=== PATIENT | female | born 1950 | race Caucasian/White ===

== ENCOUNTER 2024-03-13 05:50 | Day surgery (SDC) | payer OTHER, MEDICAID ==
[~2024-03-13] VITALS: Ht 154.9 cm; Wt 90.9 kg
[~2024-03-13 05:50] MED LIST: KETOROLAC TROMETHAMINE 0.5% 5 ML OPHTHALMIC SOLUTION ONE; MOXIFLOXACIN HCL 0.5% 3 ML OPHTHALMIC SOLUTION ONE; PHENYLEPHRINE HCL 2.5% 2 ML OPHTHALMIC SOLUTION ONE; RINGERS SOLUTION,LACTATED 500 ML IV ONE; TROPICAMIDE 1% 2 ML OPHTHALMIC SOLUTION ONE
[2024-03-13] MEDS ORDERED: CHONDR SULF A SOD/HYALURONATE 1.05 ML KIT IO ONE (06:20)
[2024-03-13] MEDS ORDERED: ASPI-1444 PO (06:27)
[2024-03-13] MEDS ORDERED: QUET50TA24 PO (06:27)
[2024-03-13] MEDS ORDERED: DIVA-153 PO (06:27)
[2024-03-13] MEDS ORDERED: SEMA14TA2 PO (06:27)
[2024-03-13] MEDS ORDERED: INSU100I94 SQ (06:27)
[2024-03-13] MEDS ORDERED: ACET-2895 PO (06:27)
[2024-03-13] MEDS ORDERED: TIOT4MIS5 IH (06:27)
[2024-03-13] MEDS ORDERED: QUET25TA PO (06:27)
[2024-03-13] MEDS ORDERED: CALC-1124 PO (06:27)
[2024-03-13] MEDS ORDERED: METF-446 PO (06:27)
[2024-03-13] MEDS ORDERED: CARV25TA32 PO (06:27)
[2024-03-13] MEDS ORDERED: ROSU40TA70 PO (06:27)
[2024-03-13] MEDS ORDERED: GABA-1181 PO (06:27)
[2024-03-13] MEDS ORDERED: CHOL500045 PO (06:27)
[2024-03-13] MEDS ORDERED: DONE-52 PO (06:27)
[2024-03-13] MEDS ORDERED: ACETYLCHOLINE CHLORIDE 1 EA INTRAOCULAR SOLUTION KIT IO ONE (06:29)
[2024-03-13] MEDS ORDERED: MIDAZOLAM HCL 2 MG/2 ML VIAL ONE (06:41)
[2024-03-13] MEDS ORDERED: FentaNYL CITRATE PF 100 MCG/2 ML VIAL ONE (06:41)
[2024-03-13] MEDS: RINGERS SOLUTION,LACTATED 500 ML IV ONE (06:53)
[2024-03-13 06:55] LABS: GLUCOMETER DEV NAME(LOC) SDS.; GLUCOSE,POINT OF CARE 213 MG/DL (70-110)
[2024-03-13] MEDS: KETOROLAC TROMETHAMINE 0.5% 5 ML OPHTHALMIC SOLUTION OD SCH (07:14)
[2024-03-13] MEDS: PHENYLEPHRINE HCL 2.5% 2 ML OPHTHALMIC SOLUTION OD SCH (07:15)
[2024-03-13] MEDS: TROPICAMIDE 1% 2 ML OPHTHALMIC SOLUTION OD SCH (07:15)
[2024-03-13] MEDS: MOXIFLOXACIN HCL 0.5% 3 ML OPHTHALMIC SOLUTION OD SCH (07:16)
[2024-03-13] MEDS ORDERED: POVIDONE-IODINE 5% 30 ML OPHTHALMIC SOLUTION ONE (07:58)
[2024-03-13] MEDS: BALANCED SALT 15 ML OPHTHALMIC IRRIG.SOLN ONE (15:21)
[2024-03-13] MEDS: EPINEPHrine 1:1,000 [1 MG/ML] VIAL ONE (15:25)
[2024-03-13] MEDS: LIDOCAINE/PF 1% 2 ML VIAL ONE (15:27)
[2024-03-13] MEDS: TETRACAINE HCL/PF 0.5% 4 ML OPHTHALMIC SOLUTION ONE (15:27)
[2024-03-13] MEDS: POVIDONE-IODINE 5% 30 ML OPHTHALMIC SOLUTION ONE (15:29)
== END 2024-03-13 12:45 | disposition home or self-care (01) ==
LOC: SURGERY 05:50
PROVIDERS: ATTEND Ophthalmology
DX: E11.36 Type 2 diabetes mellitus with diabetic cataract (principal); H25.11 Age-related nuclear cataract, right eye; I10 Essential (primary) hypertension; E66.9 Obesity, unspecified; Z68.37 Body mass index [BMI] 37.0-37.9, adult; Z98.818 Other dental procedure status; Z98.891 History of uterine scar from previous surgery; Z79.82 Long term (current) use of aspirin; Z79.84 Long term (current) use of oral hypoglycemic drugs; Z79.4 Long term (current) use of insulin; Z79.899 Other long term (current) drug therapy
CPT/HCPCS: 66984; 93005; 82962; J7321; J0171; J3010; J3490; J2250; J7120; V2632

== ENCOUNTER 2024-04-10 10:48 | Day surgery (SDC) | payer OTHER, MEDICAID ==
[~2024-04-10] VITALS: Ht 156.2 cm; Wt 81.8 kg
[~2024-04-10 10:48] MED LIST changes: +ACET-2895 PO; +ASPI-1444 PO; +BALANCED SALT 15 ML OPHTHALMIC IRRIG.SOLN ONE; +CALC-1124 PO; +CARV25TA32 PO; +CHOL500045 PO; +CHONDR SULF A SOD/HYALURONATE 1.05 ML KIT IO ONE; +DIVA-153 PO; +DONE-52 PO; +FentaNYL CITRATE PF 100 MCG/2 ML VIAL ONE; +GABA-1181 PO; +INSU100I94 SQ; +METF-446 PO; +MIDAZOLAM HCL 2 MG/2 ML VIAL ONE; +QUET25TA PO; +ROSU40TA88 PO; +SEMA14TA2 PO; +TIOT4MIS5 IH
[2024-04-10] MEDS: TROPICAMIDE 1% 2 ML OPHTHALMIC SOLUTION OS SCH (12:10)
[2024-04-10] MEDS: KETOROLAC TROMETHAMINE 0.5% 5 ML OPHTHALMIC SOLUTION OS SCH (12:10)
[2024-04-10] MEDS: RINGERS SOLUTION,LACTATED 500 ML IV ONE (12:10)
[2024-04-10] MEDS: PHENYLEPHRINE HCL 2.5% 2 ML OPHTHALMIC SOLUTION OS SCH (12:10)
[2024-04-10] MEDS: MOXIFLOXACIN HCL 0.5% 3 ML OPHTHALMIC SOLUTION OS SCH (12:11)
[2024-04-10] MEDS ORDERED: DiphenhydrAMINE HCL 50 MG/ML VIAL IVP ONE (12:15)
[2024-04-10 12:25] LABS: GLUCOMETER DEV NAME(LOC) SDS.; GLUCOSE,POINT OF CARE 175 MG/DL (70-110)
[2024-04-10] MEDS: BALANCED SALT 15 ML OPHTHALMIC IRRIG.SOLN ONE (16:11)
[2024-04-10] MEDS: EPINEPHrine 1:1,000 [1 MG/ML] VIAL ONE (16:11)
[2024-04-10] MEDS: LIDOCAINE/PF 1% 2 ML VIAL ONE (16:11)
[2024-04-10] MEDS: POVIDONE-IODINE 5% 30 ML OPHTHALMIC SOLUTION ONE (16:12)
[2024-04-10] MEDS: TETRACAINE HCL/PF 0.5% 4 ML OPHTHALMIC SOLUTION ONE (16:12)
== END 2024-04-10 14:37 | disposition home or self-care (01) ==
LOC: SURGERY 10:48
PROVIDERS: ATTEND Ophthalmology
DX: E11.36 Type 2 diabetes mellitus with diabetic cataract (principal); H25.12 Age-related nuclear cataract, left eye; E78.00 Pure hypercholesterolemia, unspecified; M19.90 Unspecified osteoarthritis, unspecified site; Z98.41 Cataract extraction status, right eye; Z98.891 History of uterine scar from previous surgery; Z98.890 Other specified postprocedural states
CPT/HCPCS: 66984; 82962; J7321; J0171; J3010; J3490; J2250; J7120; V2632